=== PATIENT | male | born 1955 | race Caucasian/White ===

== ENCOUNTER 2018-01-16 09:57 | Emergency (ER) | payer BC ==
[~2018-01-16] VITALS: Ht 172.7 cm; Wt 97.1 kg
[2018-01-16 10:42] LABS: HEMATOCRIT 48.4 % (38.0-50.0); HEMOGLOBIN 16.8 G/DL (12.5-16.6); MCH 30.7 PG (29.0-34.0); MCHC 34.7 G/DL (30.0-36.0); MCV 88.5 FL (86-99); PLATELET COUNT 334 K/uL (156-360); RBC DIS.WIDTH-CV 12.4 % (11.8-14.6); RBC DIS.WIDTH-SD 40.1 % (39-53); RED BLOOD COUNT 5.47 M/uL (4.00-5.50); WHITE BLOOD COUNT 12.3 K/uL (4.1-10.2)
[2018-01-16 10:53] LABS: CHLORIDE 104 mEq/L (99-109); POTASSIUM 4.9 mEq/L (3.7-5.4); SODIUM 141 mEq/L (136-147)
[2018-01-16 10:55] LABS: GLUCOSE 112 mg/dL (70-99)
[2018-01-16 10:59] LABS: CREATININE 0.9 mg/dL (0.6-1.3); GFR ESTIMATE (CALCULATED) > 59 mL/min/ (58.99-99999)
[2018-01-16 11:00] LABS: UREA NITROGEN (BUN) 16 mg/dL (9-23)
[2018-01-16 11:17] LABS: INTER. NORMALIZED RATIO 2.7
[2018-01-16] MEDS ORDERED: WARFARIN SODIUM2 MG PO (11:28)
[2018-01-16] MEDS ORDERED: SIMVASTATIN40 MG PO (11:29)
[2018-01-16 12:11] LABS: D-DIMER ELISA < 150.00 ng/mLDDU (<230)
[2018-01-16] MEDS ORDERED: TESSALON200 MG PO (13:11)
[2018-01-16] MEDS ORDERED: FLONASE16 G1 BOTH NARES (13:11)
[2018-01-16] MEDS ORDERED: GUAIFENESIN600 M1 PO (13:11)
[2018-01-16 13:18] VITALS: BP 134/84
== END 2018-01-16 13:20 | disposition home or self-care (01) ==
LOC: EME 09:57
PROVIDERS: Nurse Practitioner Family
DX: J06.9 Acute upper respiratory infection, unspecified (principal); Z86.711 Personal history of pulmonary embolism; R79.1 Abnormal coagulation profile; E78.5 Hyperlipidemia, unspecified; Z86.718 Personal history of other venous thrombosis and embolism
CPT/HCPCS: 71046; 80048; 85027; 85379; 85610; 87502; 87651 90; 93005; 99281; 99284